=== PATIENT | female | born 1995 | race Caucasian/White ===

== ENCOUNTER 2022-09-03 10:46 | Outpatient (CLI) | payer OTHER ==
[2022-09-03 12:41] LABS: Appearance,Urine Clear (Clear); Bacteria,Urine Rare /hpf; Bilirubin,Urine Negative (Negative); Blood,Urine Negative (Negative); Color,Urine Yellow; Glucose,Urine (UA) Negative (Negative); Ketones,Urine Negative (Negative); Leukocyte Esterase,Urine Large (Negative); Mucus,Urine Rare /hpf; Nitrite,Urine Negative (Negative); Protein,Urine 1+ (Negative); RBC,Urine <1 /hpf (0-5); Specific Gravity,Urine 1.019 (1.001-1.035); Squamous Epithelial Cell,Urine 6 /hpf (0-4); WBC,Urine 33 /hpf (0-5)
[2022-09-03 12:43] LABS: Amphetamine Screen,Urine Not Detected (NotDetected); Barbiturate Screen,Urine Not Detected (NotDetected); Benzodiazepines Screen,Urine Not Detected (NotDetected); Cocaine Screen,Urine Not Detected (NotDetected); Methadone Screen, Urine Not Detected (NotDetected); Opiate Screen,Urine Not Detected (NotDetected); Oxycodone Screen, Urine Not Detected (NotDetected); Phencyclidine Screen,Urine Not Detected (NotDetected); Tricyclic Antidepressant,Urine Not Detected (NotDetected); Urn Cannabinoid Scrn Not Detected (NotDetected)
[2022-09-03 12:55] LABS: Creatinine,Urine Random 151.1 mg/dL; Protein/Creatinine Ratio,Urine 0.483
--- NOTE | 2022-09-03 13:00 | US ---
EXAMINATION TYPE: US OB >= 14 wk fetus DATE OF EXAM: 09/03/2022 COMPARISON: None CLINICAL INDICATION: Female, 26 years old with history of no care, need dates; TECHNIQUE: Transabdominal (TA) GESTATIONAL AGE / DATING Physician Established: Not yet established Dates by LMP: 11/27/2021 (40 weeks/0 days) EDC: 09/03/2022 Dates by First Scan: No previous this is first scan Dates by Current Scan: (37 weeks/0 days) EDC: 09/24/2022 SURVEY IUP: Single PLACENTA: Anterior PREVIA: No Previa YURI: 3.1 cm Oligohydramnios CERVICAL LENGTH (transabdominal: norm > 3.0cm): Not seen due to shadowing from head BIOMETRY PRESENTATION: Vertex BPD: 8.9 cm 36 weeks / 3 days HC: 32.1 cm 36 weeks / 2 days AC: 32.6 cm 36 weeks / 4 days FL: 7.5 cm 38 weeks / 4 days ESTIMATED WEIGHT IN GRAMS: 3085 grams ESTIMATED WEIGHT IN LBS/OZ: 6 lbs. 13 oz. WEIGHT PERCENTAGE BASED ON ESTABLISHED DATES: 12% HC/AC: 0.98 Normal FL/AC: 23% Normal HEART RATE: 150 bpm RHYTHM: Normal Hazard Mitigation Officer notes: Floor nurse made aware of low fluid findings. IMPRESSION: 1. Single live intrauterine with estimated gestational age of 40 weeks 0 days by LMP. Curre nt ultrasound biometry is smaller at 37 weeks 0 days. 2. In addition, there is oligohydramnios with YURI measured at 3.1 cm. 3. EFW at 12th percentile. Appropriate follow-up recommended.
[2022-09-03 13:01] LABS: Basophils % (A) 0 %; Eosinophils % (A) 0 %; HCT 27.8 % (34.0-46.0); HGB 8.6 gm/dL (11.4-16.0); Hypochromasia Moderate; Lymphocytes # (A) 1.6 k/uL (1.0-4.8); Lymphocytes % (A) 21 %; MCH 23.8 pg (25.0-35.0); MCHC 30.9 g/dL (31.0-37.0); MCV 77.1 fL (80.0-100.0); Mean Platelet Volume 7.9; Microcytosis Slight; Monocytes # (A) 0.2 k/uL (0-1.0); Monocytes % (A) 3 %; Neutrophils # (A) 5.5 k/uL (1.3-7.7); Neutrophils % (A) 74 %; Platelet Count 260 k/uL (150-450); Poikilocytosis Slight; RDW 15.8 % (11.5-15.5); WBC 7.5 k/uL (3.8-10.6)
[2022-09-03 13:14] LABS: ALT 11 U/L (4-34); AST 24 U/L (14-36); African American GFR (CKD) >90 (>60 ml/min/1.73 sqM); Blood Urea Nitrogen 5 mg/dL (7-17); Glucose 71 mg/dL (74-99); LDH 218 U/L (120-246); Non-African American GFR(CKD) >90 (>60 ml/min/1.73 sqM); Uric Acid 3.4 mg/dL (3.7-7.4)
[2022-09-03 13:22] LABS: INR 0.9 (<1.2); Partial Thromboplastin Time 22.2 sec (22.0-30.0); Prothrombin Time 9.4 sec (9.0-12.0)
[2022-09-03 14:15] VITALS: BP 140/79; PULSE 77; RESP 16; TEMP 98.2
[2022-09-03 21:40] LABS: HIV 2 AB Non-Reactive (Non-Reactive); HIV AB P24 Non-Reactive (Non-Reactive); HIV P24 AG Non-Reactive (Non-Reactive)
[2022-09-03 22:43] LABS: Hepatitis B Surface Antigen Nonreactive (Nonreactive)
[2022-09-04 13:19] LABS: C. trachomatis,PCR Negative (Neg,Equiv); Chlamydia trachomatis Source Urine; N. gonorrhoeae,PCR Negative (Neg,Equiv); Neisseria Source Urine
--- NOTE | 2022-09-14 15:28 | P.MSEPDOC ---
Presenting Problems - Arrival Data Date of Arrival on Unit: 09/03/22 Time of Arrival on Unit: 10:46 Mode of Transport: Portable - Complaint OB-Reason for Admission/Chief Complaint: Possible Onset of Labor Comment: cx q20-30 mins Medical History - Information : 3 Para: 2 Term: 2 : 0 Abortions: Spontaneous or Elective: 0 Number of Living Children: 2 - Gestational Age Gestational Age by MARIBEL (wks/days): 37 Weeks and 0 Days - History Complications: No Care Review of Systems - Review of Systems Constitutional: No problems Breast: No problems ENT: No problems Cardiovascular: No problems Respiratory: No problems Gastrointestinal: No problems Genitourinary: No problems Musculoskeletal: No problems Neurological: No problems Skin: No problems Vital Signs - Temperature Temperature: 98.2 F Temperature Source: Temporal Artery Scan - Pulse Pulse Oximetery Pulse Rate: 77 Pulse Assessment Method: Pulse Oximetry - Respirations Respiratory Rate: 16 Oxygen Delivery Method: Room Air - Blood Pressure Right Arm Blood Pressure: 140/79 Blood Pressure Mean: 99 Blood Pressure Source: Automatic Cuff Medical Screen Scoring - Cervical Exam Dilation (cm): 0 Effacement (%): 50 Station: -2 Membranes: Intact - Uterine Contractions Frequency From (mins): 5 Frequency To (mins): 12 Duration From (seconds): 70 Duration To (seconds): 120 Intensity: Moderate Resting: Soft to palpation - Assessment - Baby A Baseline FHR: 135 Heart Rate - NICHD Category: Category I (Normal) NST: Reactive Physician Notification - Physician Notified Physician Notified Date: 09/03/22 Physician Notified Time: 11:30 Physician: Maricarmen Aguirre New Order Received: Yes - Notification Comment Comment: 1130 - Dr. Aguirre notified of pt's arrival and no care, concerns of. contractions with pain 5/10, bp's, fht's, contractions, orders to obtain labs,. preeclampsia labs, and obtain cervical exam, call her with results (closed/50/-2). 1159 - Dr. Aguirre notified of cervical exam and she ordered an Ultrasound for dates. 1325 - Dr. Aguirre called, update given on U/S (baby measuring at 37 0/7wks, 6lbs. 13oz, YURI 3.1, and anterior placenta), labs show HGB 8.6, HCT 27.8, PLT 260, AST/ALT/LDH. all WNL, urine shows 1+ protein, large leukocytes, and protein/network security architect ratio of 0.483. NST. is reactive and FHR is currently category 1. Contractions are every 8-10mins, pt is. breathing with them but able to talk through them still. Orders to discharge pt home. with instructions to call [facility] tonight for an appointment in the next 24-48hrs. Dr. Agurire would like to establish care and repeat the U/S in the office. Maternal Triage Index - Maternal Triage Index Presenting for scheduled procedure w/no complaint: No - Stat/Priority 1 Stat Priority 1: No - Urgent/Priority 2 Urgent Priority 2: No - Prompt/Priority 3 Prompt Priority 3: No - Non-Urgent/Priority 4 Non-Urgent Priority 4: Yes Criteria Met for Priority 4: 37 0/7wks (based on u/s today), cx [id number], no care or ultrasounds Disposition - Disposition OB Disposition: Discharge to home Discharge Date: 09/03/22 Discharge Time: 13:50 I agree with the RN Medical Screening Exam: Yes Case reviewed; plan agreed upon as documented in EMR&OBIX.: Yes Diagnosis: Rule out labor
== END 2022-09-03 13:50 | disposition home or self-care (01) ==
LOC: FBPOP 10:46
PROVIDERS: ATTEND Obstetrics & Gynecology
DX: Z03.71 Encounter for suspected problem with amniotic cavity and membrane ruled out (principal); Z3A.37 37 weeks gestation of pregnancy
CPT/HCPCS: 59025; 76805; 80306; 81001; 82565; 82570; 82947; 83615; 84156; 84450; 84460; 84520; 84550; 85025; 85384; 85610; 85730; 86762; 86780; 86850; 86900; 86901; 87077; 87081; 87186; 87340; 87390; 87491; 87591; 99215

== ENCOUNTER 2022-09-03 16:09 | Inpatient (IN) | payer OTHER ==
[2022-09-03] MEDS ORDERED: LIDOCAINE 0.5% (PF) 5 MG/ML (50 ML SDV) SQ PRN (17:04)
[2022-09-03] MEDS ORDERED: miSOPROStoL 200 MCG TAB PO PRN (17:04)
[2022-09-03] MEDS ORDERED: TRANEXAMIC ACID IN NACL,ISO-OS 1,000 MG in EMPTY BAG 1 BAG IV PRN (17:04)
[2022-09-03] MEDS ORDERED: TERBUTALINE 1 MG/ML VIAL SQ PRN (17:04)
[2022-09-03] MEDS ORDERED: CARBOPROST TROMETHAMINE 250 MCG/ML 1 ML AMP IM PRN (17:04)
[2022-09-03] MEDS ORDERED: METHYLERGONOVINE 0.2 MG/ML 1 ML AMP IM PRN (17:04)
[2022-09-03] MEDS ORDERED: PENICILLIN G POTASSIUM 5,000,000 UNIT in DEXTROSE 5% IN WATER 100 ML IVPB STA ×2 (17:04)
[2022-09-03] MEDS ORDERED: OXYTOCIN 10 UNIT/ML 1 ML VIAL IM PRN (17:04)
[2022-09-03] MEDS: LACTATED RINGERS 1,000 ML IV SCH ×2 (17:30→22:39)
--- NOTE | 2022-09-03 18:14 | P.HPOB ---
History of Present Illness H&P Date: 09/03/22 Chief Complaint: Contractions This is a 26-year-old 3 para 2001 woman who presents to labor and delivery triage stating today is heard due date. She has had no care through the . She presented earlier today to labor and delivery triage with complaints of contractions. At that time she had an ultrasound on the presented during parameters consistent with 37-0/7 weeks gestation. She bases her deviated of today based on her last menstrual period calculation. Upon initial evaluation she was not regularly claudia and her cervix was closed. She was discharged home with instructions for follow-up in the outpatient setting to establish care within the next 24 hours. She reports presented several hours later with worsening painful contractions. Assessment by the nurse in triage was a cervical dilation of 3.5 cm. Review of ultrasound shows low amniotic fluid volume with a single greatest pocket of 3.7 cm. Estimated weight is 3085 g. Patient's blood type is A+ and antibody screen negative. She is anemic with a hemoglobin of 8.6. PIH labs are within normal limits and she has 1+ protein in her urine. Obstetric history significant for term normal spontaneous vaginal delivery in 2019 of an with tetralogy of fallopian. Term Normal spontaneous vaginal delivery in 2020 complicated by preeclampsia. Review of Systems Constitutional: Denies chills, Denies fever Ears, nose, mouth and throat: Denies headache Cardiovascular: Denies chest pain, Denies high blood pressure, Denies irregular heart beat, Denies shortness of breath Respiratory: Denies cough Gastrointestinal: Denies abdominal pain Genitourinary: Denies abnormal vaginal bleeding Musculoskeletal: Reports low back pain Integumentary: Denies rash Past Medical History Past Medical History: No Reported History History of Any Multi-Drug Resistant Organisms: None Reported Past Surgical History: No Surgical Hx Reported Past Anesthesia/Blood Transfusion Reactions: No Reported Reaction Past Psychological History: No Psychological Hx Reported Smoking Status: Never smoker Past Alcohol Use History: None Reported Past Drug Use History: None Reported Medications and Allergies Home Medications Medication Instructions Recorded Confirmed Type No Known Home Medications 09/03/22 09/03/22 History Allergies Allergy/AdvReac Type Severity Reaction Status Date / Time No Known Allergies Allergy Verified 09/03/22 16:49 Exam Intake and Output 09/03/22 09/03/22 09/03/22 06:59 14:59 22:59 Other: Weight 77.111 kg Upon my initial evaluation this is a visibly gravid female in no acute distress. HEENT exam is unremarkable. Her breathing is unlabored. The abdomen is gravid with a fundal height consistent with a term . The abdomen is soft with no palpable contractions. She has 1+ bilateral lower extremity edema. On pelvic examination the cervix is very posterior and is fingertip to 1 cm dilated and 50% effaced. The head is in the -4 station. heart tones are category 1 by external monitoring and the patient is claudia very irregularly and mildly. Assessment and Plan (1) Term Current Visit: Yes Status: Acute Code(s): Z34.90 - ENCNTR FOR SUPRVSN OF NORMAL , UNSP, UNSP TRIMESTER SNOMED Code(s): 12753438 (2) No care in current Current Visit: Yes Status: Acute Code(s): O09.30 - SUPRVSN OF PREG W INSUFFICIENT ANTENAT CARE, UNSP TRIMESTER SNOMED Code(s): 010484817 (3) Oligohydramnios Current Visit: Yes Status: Acute Code(s): O41.00X0 - OLIGOHYDRAMNIOS, UNSP TRIMESTER, NOT APPLICABLE OR UNSP SNOMED Code(s): 13500304 Plan: This is a 26 year old 3 para 2002 woman with no care and an estimated due date based on LMP of 09/03/2022 and 09/24/2022 based on ultrasound. She has low amniotic fluid with a single largest fluid pocket of 3.7 cm. She is anemic. My evaluation not consistent with the cervical evaluation upon admission. The patient therefore will stay for observation she progresses to active labor she will be admitted. We will reassess otherwise in 12-18 hours with her induction of labor is indicated based on the oligohydramnios weighed against gestational age. status is currently reassuring by category 1 heart tones. When she is in active labor she will need group B strep prophylactic antibiotics.
[2022-09-03] MEDS ORDERED: ROPIVACAINE 5 MG/ML 20 ML AMPULE ONE (22:28)
[2022-09-03] MEDS ORDERED: fentaNYL (PF) 50 MCG/ML 5 ML AMP ONE (22:28)
[2022-09-03] MEDS ORDERED: SODIUM CHLORIDE 0.9% 100 ML BAG ONE (22:28)
[2022-09-03] MEDS: PENICILLIN G POTASSIUM 2,500,000 UNIT in DEXTROSE 5% IN WATER 100 ML IVPB SCH ×2 (22:39)
[2022-09-03] MEDS: OXYTOCIN 30 UNITS/500 ML NS 30 UNIT in SALINE 1 500ML.BAG IV SCH (23:51)
[2022-09-04] MEDS: PENICILLIN G POTASSIUM 2,500,000 UNIT in DEXTROSE 5% IN WATER 100 ML IVPB SCH ×2 (02:19)
[2022-09-04 03:09] LABS: Glucose,Whole Blood 86 mg/dL (70-110)
[2022-09-04] MEDS: LACTATED RINGERS 1,000 ML IV SCH (05:12)
[2022-09-04] MEDS ORDERED: LANOLIN CREAM 5 GM TUBE TOPICAL PRN (05:41)
[2022-09-04] MEDS ORDERED: ZOLPIDEM 5 MG TAB PO PRN (05:41)
[2022-09-04] MEDS ORDERED: diphenhydrAMINE 50 MG/ML 1 ML VIAL IVP PRN ×2 (05:41)
[2022-09-04] MEDS ORDERED: SIMETHICONE 80 MG CHEWABLE PO PRN (05:41)
[2022-09-04] MEDS ORDERED: HYDROCORTISONE 2.5% RECTAL CREAM 30 GM TUBE RECTAL PRN (05:41)
[2022-09-04] MEDS ORDERED: ACETAMINOPHEN TAB 325 MG TAB PO PRN (05:41)
[2022-09-04] MEDS ORDERED: diphenhydrAMINE 50 MG CAP PO PRN (05:41)
[2022-09-04] MEDS ORDERED: diphenhydrAMINE 25 MG CAP PO PRN (05:41)
[2022-09-04] MEDS ORDERED: BENZOCAINE/MENTHOL SPRAY 1 GM/SPRAY AEROSOL TOPICAL PRN (05:41)
--- NOTE | 2022-09-04 05:41 | P.PROBDLV ---
Vaginal Delivery Note - . Vaginal Delivery Note: Findings: Female in the occiput posterior position with Apgars of 8 at 1 minute and 9 at 5 minutes, weight pending. First-degree perineal laceration. Intact, three-vessel cord placenta. EBL approximately 150 mL's. Delivery summary: This is a 26-year-old 3 para 2001 woman who presented at term in early labor having received no care throughout the . Based on her last. She is gives a due date of 09/04/2022. Bedside ultrasound showed measurements consistent with 37-0/7 weeks gestation. Following admission the patient was in early labor for several hours. Eventually she did have increasing contraction activity and artificial rupture of membranes was undertaken. She received an epidural anesthetic. She received Pitocin augmentation. She reached complete cervical dilation however had no strong urge to push. She was therefore allowed to labor down for some time until the infant's head was in the 2+ station. At that time she commenced pushing for approximately 20 minutes. heart tones were category 2 with some intermittent variable heart rate decelerations down to the 80s to 90s with some contractions. She had good return to baseline. With she was repositioned, prepped and draped in the dorsal modified Lizabeth position. With additional maternal effort the head delivered from the direct occiput posterior position and restituted the right occiput anterior position. The anterior and posterior shoulders were then delivered rapidly and without difficulty. The rest of the was delivered onto the field and the nose and mouth were bulb suctioned. was placed on the maternal abdomen with the cord was clamped and cut. Apgars were 8 at 1 minute and 9 at 5 minutes and weight is pending. The perineum was inspected and infused with lidocaine. A first degree perineal laceration was repaired with 3-0 Vicryl suture. An intact, three-vessel cord placenta was expressed after approximately 5 minute third stage of labor. The uterus was massaged and was noted to be firm and she received Pitocin following delivery of the placenta. The rest the vagina was inspected and no further lacerations were noted. She did have significant swelling and edema of bilateral vulvar and periurethral areas. Both mother and were doing well post delivery in the room. All counts are correct.
[2022-09-04] MEDS ORDERED: OXYTOCIN 30 UNITS/500 ML NS 30 UNIT in SALINE 1 500ML.BAG IV SCH (05:45)
[2022-09-04] MEDS: IBUPROFEN 600 MG TAB PO PRN ×3 (06:18→19:56)
[2022-09-04] MEDS: OXYTOCIN 30 UNITS/500 ML NS 30 UNIT in SALINE 1 500ML.BAG IV SCH (06:30)
[2022-09-04] MEDS: SENNOSIDES-DOCUSATE SODIUM 1 EACH TAB PO SCH ×2 (08:19→19:58)
[2022-09-05] MEDS: IBUPROFEN 600 MG TAB PO PRN ×2 (08:00→16:18)
[2022-09-05] MEDS: SENNOSIDES-DOCUSATE SODIUM 1 EACH TAB PO SCH (08:00)
[2022-09-05 08:19] LABS: Basophils % (A) 0 %; Eosinophils # (A) 0.1 k/uL (0-0.7); Eosinophils % (A) 1 %; HCT 26.1 % (34.0-46.0); HGB 8.2 gm/dL (11.4-16.0); Hypochromasia Moderate; Lymphocytes # (A) 1.9 k/uL (1.0-4.8); Lymphocytes % (A) 19 %; MCH 24.2 pg (25.0-35.0); MCHC 31.3 g/dL (31.0-37.0); MCV 77.3 fL (80.0-100.0); Mean Platelet Volume 7.8; Microcytosis Slight; Monocytes # (A) 0.3 k/uL (0-1.0); Monocytes % (A) 3 %; Neutrophils % (A) 77 %; Platelet Count 258 k/uL (150-450); Poikilocytosis Slight; RBC 3.37 m/uL (3.80-5.40); RDW 15.7 % (11.5-15.5); WBC 10.4 k/uL (3.8-10.6)
--- NOTE | 2022-09-05 10:03 | P.DS ---
Providers Date of admission: 09/03/22 17:04 Expected date of discharge: 09/05/22 Attending physician: Maricarmen Aguirre Primary care physician: Stated None - Discharge Diagnosis(es) (1) Term Current Visit: Yes Status: Acute (2) No care in current Current Visit: Yes Status: Acute (3) Oligohydramnios Current Visit: Yes Status: Acute (4) Occiput posterior presentation of fetus Current Visit: Yes Status: Acute (5) Normal spontaneous vaginal delivery Current Visit: Yes Status: Acute (6) Perineal laceration with delivery, first degree Current Visit: Yes Status: Acute (7) Anemia Current Visit: Yes Status: Acute Hospital Course: This is a 26-year-old 3 now para 3 woman who presented on to labor and delivery triage in early active labor. She had received no care throughout her and stated she was 40 weeks based on calculation from her last menstrual period. Bedside ultrasound showed term gestation with an estimated gestational age of 37-0/7 weeks. Following admission she received group B strep prophylactic antibiotics and with the dilation of the cervix underwent artificial rupture of membranes and Pitocin augmentation. She received an epidural anesthetic. She went on to deliver a liveborn female infant from the direct occiput posterior position with Apgars of 8 at 1 minute and 9 at 5 minutes weighing 8 lbs. 4 oz. She had a first-degree perineal laceration that was repaired. On day #2 she was recovering well. She had some initial moderate bleeding that was managed with a single dose of Methergine and by day #1 this had decreased significantly. Her hemoglobin was 8.2 and on admission had been 8.6. Her pain was well- controlled and she was ambulating and voiding without difficulty. Her vital signs were stable. She is breast-feeding successfully. services program manager consult is pending. She will be discharged home later in the day with routine instructions for care and follow-up. Patient Condition at Discharge: Good Plan - Discharge Summary New Discharge Prescriptions: New Ferrous Sulfate [Feosol] 325 mg PO BID #60 tab Discharge Medication List Ferrous Sulfate [Feosol] 325 mg PO BID #60 tab 09/05/22 [Rx] Follow up Appointment(s)/Referral(s): Maricarmen Aguirre MD [STAFF PHYSICIAN] - 6 Weeks Activity/Diet/Wound Care/Special Instructions: Follow-up in the office in 6 weeks . Call with any concerning signs or symptoms including heavy vaginal bleeding, severe abdominal pain, fever greater than 101, swelling or redness of the lower extremities, foul vaginal discharge, or signs of depression. Nothing in the vagina for 6 weeks after delivery, specifically no intercourse. Discharge Disposition: HOME SELF-CARE
[2022-09-05 16:41] VITALS: BP 129/82; PULSE 93; RESP 17; TEMP 98.3
== END 2022-09-05 19:00 | disposition home or self-care (01) | DRG 560 ==
LOC: FBPOP 16:09 → 4FBP 17:04
PROVIDERS: ADMIT Obstetrics & Gynecology; ATTEND Obstetrics & Gynecology
PROC: 10E0XZZ Delivery of Products of Conception, External Approach (ICD-10-PCS; principal; 2022-09-04)
PROC: 0HQ9XZZ Repair Perineum Skin, External Approach (ICD-10-PCS; 2022-09-04)
PROC: 3E033VJ Introduction of Other Hormone into Peripheral Vein, Percutaneous Approach (ICD-10-PCS; 2022-09-04)
PROC: 4A0HXCZ Measurement of Products of Conception, Cardiac Rate, External Approach (ICD-10-PCS; 2022-09-04)
PROC: 10907ZC Drainage of Amniotic Fluid, Therapeutic from Products of Conception, Via Natural or Artificial Opening (ICD-10-PCS; 2022-09-04)
DX: O32.8XX0 Maternal care for other malpresentation of fetus, not applicable or unspecified (principal); O41.03X0 Oligohydramnios, third trimester, not applicable or unspecified; O76 Abnormality in fetal heart rate and rhythm complicating labor and delivery; O72.1 Other immediate postpartum hemorrhage; O70.0 First degree perineal laceration during delivery; D64.9 Anemia, unspecified; O99.02 Anemia complicating childbirth; Z37.0 Single live birth; Z3A.37 37 weeks gestation of pregnancy
CPT/HCPCS: 59025; 85025; 99213